=== PATIENT | female | born 1985 | race Caucasian/White ===

== ENCOUNTER 2020-07-18 06:03 | Emergency (ER) | payer BC ==
[2020-07-18 10:00] LABS: HEMOGLOBIN 13.3 gm/dl (12.3-15.3); RED BLOOD COUNT 4.73 M/UL (4.00-5.10); WHITE BLOOD COUNT 7.2 K/UL (4.5-11.0)
[2020-07-18] MEDS ORDERED: IBU800 MG PO (12:38)
[2020-07-18] MEDS ORDERED: MEDROL DOSEPAK 24 MG PO (12:38)
[2020-07-18] MEDS ORDERED: ZOFRAN ODT 4 MG4 MG PO (12:38)
[2020-07-18] MEDS ORDERED: ROBAXIN-750750 MG PO (12:38)
== END 2020-07-18 13:20 | disposition home or self-care (01) ==
LOC: ER1 06:03
PROVIDERS: Nurse Practitioner
DX: M48.061 Spinal stenosis, lumbar region without neurogenic claudication (principal); M51.16 Intervertebral disc disorders with radiculopathy, lumbar region
CPT/HCPCS: 72131; 81001; 84703; 85025; 85652; 96372; 99284; J1100; J1885; J2360

== ENCOUNTER → 2020-08-16 | Outpatient (CLI) | payer BC ==
[~2020-08-16] MED LIST: IBU800 MG PO; MEDROL DOSEPAK 24 MG PO; ROBAXIN-750750 MG PO; ZOFRAN ODT 4 MG4 MG PO
== END ==
LOC: EMI 13:21
DX: M54.5 Low back pain (principal); M51.26 Other intervertebral disc displacement, lumbar region
CPT/HCPCS: 72148